=== PATIENT | male | born 1955 | race Caucasian/White ===

== ENCOUNTER 2025-03-16 07:40 | Day surgery (SDC) | payer OTHER, BC ==
[2025-03-14 16:32] LABS: Absolute Lymphocytes (CBC) 1.9 K/uL (0.7-4.9); Hematocrit 41.1 % (39.6-49.0); Hemoglobin 13.8 g/dL (13.6-17.9); MCH 29.2 pg (27.0-35.0); MCHC 33.5 g/dL (32.0-36.0); MCV 87.0 fL (80-100); MPV 8.6 fL (7.6-11.3); Nucleated RBC Absolute Count 0.0 (0-0); Nucleated Red Blood Cells % 0.2 % (0-0); RBC Red Blood Cell Count 4.72 M/uL (4.33-5.43); White Blood Count 6.40 thou/uL (4.3-10.9)
[2025-03-14 16:43] LABS: PT Prothrombin Time 10.6 SECONDS (10-13.0); PTT, Activated Partial Thromb 33.1 SECONDS (27.2-37.4); Protime INR 0.94
[2025-03-14 16:49] LABS: Anion Gap 7.4 mEq/L (5.0-15.0); BUN Blood Urea Nitrogen 19.0 mg/dL (7-18); Glucose Level 142.0 mg/dL (74-106); Potassium 5.4 mEq/L (3.5-5.1)
[2025-03-16] MEDS ORDERED: FENTANYL CITR 100 MCG/2 ML ONE (08:13)
[2025-03-16] MEDS ORDERED: NA CHLORIDE 0.9% 500 ML ONE (08:14)
[2025-03-16] MEDS ORDERED: MIDAZOLAM HCL 2 MG/2 ML INJ ONE (08:14)
[2025-03-16] MEDS ORDERED: HEPA 1000U/500MLS 2,000 UNIT/1,000 ML BAG IV ONE (08:18)
[2025-03-16] MEDS ORDERED: HEPARIN 10,000 UNIT/10 ML VIAL IV ONE (08:19)
[2025-03-16] MEDS ORDERED: HEPARIN 5000 UNIT/ML 1 ML VIAL ONE (08:19)
[2025-03-16] MEDS ORDERED: ATROPINE SULF 1 MG/10 ML SYR IV ONE (08:19)
[2025-03-16] MEDS ORDERED: LIDOCAINE 1% 20 ML MDV ONE (08:19)
--- NOTE | 2025-03-16 10:09 | P.OP ---
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 Sedation and Anesthesia: ASA Classification II. Moderate sedation was provided using IV midazolam 1 mg and IV fentanyl 25 mcg. Sedation began at 8:49 AM and ended at 9:12 AM, for a total duration of 23 min. Continuous hemodynamic, respiratory, pulse oximetry, and level of consciousness monitoring was performed throughout the procedure in accordance with hospital policy. The patient tolerated sedation well without adverse events. Procedure Description: The patient was prepped and draped in the usual sterile fashion, and a procedural time-out confirmed patient identity, procedure, and site. Vascular access was obtained via the right radial artery using a 6 F sheath. A 6 F JR4 diagnostic catheter was advanced over a wire under fluoroscopic guidance to the left ventricle, left heart catheterization was performed, and the LVEDP was measured at 8 mmHg. The catheter was slowly pulled back across the aortic valve and any trans-aortic gradient was assessed (10-15 mmHg). Selective RCA coronary angiography was performed, after which the catheter was exchanged for a 6 F JL 3.5 catheter and selective angiography of the LM, LAD, and LCx arteries was obtained in standard projections. At the conclusion of the procedure all catheters and the sheath were removed, hemostasis was achieved with TR Band, and the patient tolerated the procedure without immediate complications. Coronary Findings: - Right dominant system. - Left Main (LM): Distal mild diffuse disease. - Left Anterior Descending (LAD): Proximal 70-80% stenosis. Mid 90-95% seg mental stenosis at bifurcation with D1. Distal mild disease. D1 ostial 30-50% stenosis, moderate size vessel. - Left Circumflex (LCx): Proximal mild disease. Mid 60-70% stenosis. Distal mild diffuse disease. OM1 ostial 50-60% stenosis, moderate size branching vessel. OM 2 moderate diffuse disease, small size vessel. OM 3 proximal multifocal up to 90-95% stenosis, moderate to large sized branching vessel. RPL 1 free of significant disease, small to moderate size vessel. - Right Coronary Artery (RCA): Proximal segmental 70-80% stenosis. Mid mild disease. Distal multifocal disease with up to 80-90% stenosis. AV continuation ostial 30-50% stenosis. There are 3 small RPL branches with no significant disease. PDA mild disease. Complications: None. Estimated Blood Loss: < 10 mL. Post-procedure Plan: The patient will be monitored in the recovery area per protocol. Continue guideline-directed medical therapy including ASA and statin. Hold lisinopril due to hyperkalemia. Aggressive lifestyle and risk factor modification. Heart team discussion and cardiac surgery consultation regarding CABG in setting of multivessel CAD and diabetes.
[2025-03-16 11:47] VITALS: BP 133/76; O2SAT 98
== END 2025-03-16 11:35 | disposition home health service (06) ==
LOC: CCL 07:40
PROVIDERS: ATTEND Internal Medicine
DX: I25.119 Atherosclerotic heart disease of native coronary artery with unspecified angina pectoris (principal); R00.1 Bradycardia, unspecified; I10 Essential (primary) hypertension; E78.5 Hyperlipidemia, unspecified; E11.65 Type 2 diabetes mellitus with hyperglycemia; F17.210 Nicotine dependence, cigarettes, uncomplicated
CPT/HCPCS: 85025; 80048; 36415; 85610; 85347; 85730; 93458; 76937; C1893; Q9966; J1644 ×2; J2003; J2250; J3010; J7040; 99152; J0461